=== PATIENT | female | born 1990 | race Caucasian/White ===

== ENCOUNTER → 2020-01-23 | Outpatient (CLI) | payer OTHER ==
[2020-01-23 12:53] LABS: BASO % 0.5 % (0.0-1.0); EOS # 0.1 10*3/uL (0.0-0.4); EOS % 1.3 % (1.0-4.0); HEMATOCRIT 39.7 % (37.0-47.0); LYMPH # 1.8 10*3/uL (1.3-4.4); LYMPH % 21.6 % (27.0-41.0); MEAN CELL VOLUME 83.6 fl (81.0-99.0); MEAN CORPUSCULAR HGB 26.1 pg (27.0-31.0); MEAN CORPUSCULAR HGB CONC 31.2 g/dl (33.0-37.0); MEAN PLATELET VOLUME 10.3 fl (9.6-12.3); MONO # 0.6 10*3/uL (0.1-1.0); NEUT # 5.7 10*3/uL (2.3-7.9); NEUT % 69.4 % (47.0-73.0); PLATELET COUNT AUTOMATED 296 10*3/uL (130-400); RED BLOOD COUNT 4.75 10*6/uL (4.10-5.10); RED CELL DISTRI WIDTH 13.3 % (0-14.5); WHITE BLOOD COUNT 8.2 10*3/uL (4.8-10.8)
[2020-01-23 13:07] LABS: ALBUMIN 3.7 gm/dl (3.1-4.5); BUN 10 mg/dl (7-24); CHLORIDE 107 mmol/L (98-107); CHOLESTEROL 193 mg/dL (<200); CREATININE 0.68 mg/dL (0.55-1.02); HDL CHOLESTEROL 73 mg/dl (40-60); LDL CHOLESTEROL 94 mg/dL (9-159); POTASSIUM 4.1 mmol/L (3.5-5.1); SGOT/AST 20 IU/L (3-35); SGPT/ALT 29 U/L (12-78); SODIUM 139 mmol/L (136-145); TOTAL PROTEIN 8.5 gm/dL (6.4-8.2); TRIGLYCERIDES 129 mg/dl (<150); VLDL CHOLESTEROL 26 mg/dL (6-40)
[2020-01-23 13:13] LABS: ALKALINE PHOSPHATASE 85 U/L (45-117); B-hCG (QUALITATIVE) NEGATIVE (NEGATIVE); FREE T4 1.19 ng/dl (0.76-1.46); THYROID STIM HORMONE (HS) 0.922 uIU/ml (0.358-4.75)
== END | disposition home or self-care (01) ==
LOC: LAB 12:05
PROVIDERS: ATTEND Internal Medicine
DX: R53.83 Other fatigue (principal)

== ENCOUNTER → 2020-05-06 | Outpatient (CLI) | payer OTHER | END | disposition home or self-care (01) | LOC: COVID19 13:20 | PROVIDERS: ATTEND Internal Medicine | DX: Z20.828 Contact with and (suspected) exposure to other viral communicable diseases (principal) ==

== ENCOUNTER → 2023-08-28 | Outpatient (CLI) | payer OTHER | LOC: US 01:43 → CARD 08:00 → US 09:00 → CARD 10:00 | PROVIDERS: ATTEND Internal Medicine | DX: E04.2 Nontoxic multinodular goiter (principal); E04.1 Nontoxic single thyroid nodule; I47.10 Supraventricular tachycardia, unspecified ==